=== PATIENT | female | born 1995 | race Caucasian/White ===

== ENCOUNTER 2017-03-20 12:19 | Emergency (ER) | payer SELFPAY ==
[~2017-03-20] VITALS: Ht 170.2 cm; Wt 127.3 kg
[2017-03-20 12:24] VITALS: TEMP 98
[2017-03-20 14:18] VITALS: BP 116/68; PULSE 83
== END 2017-03-20 14:18 | disposition home or self-care (01) ==
LOC: COL.ER 12:19
DX: S09.90XA Unspecified injury of head, initial encounter (principal); Z90.89 Acquired absence of other organs; W13.8XXA Fall from, out of or through other building or structure, initial encounter; W22.8XXA Striking against or struck by other objects, initial encounter